=== PATIENT | female | born 1975 | race Caucasian/White ===

== ENCOUNTER → 2017-02-23 | Outpatient (CLI) | payer MEDICAID ==
[~2017-02-23] MED LIST: BACTRIM DS 8001 TAB PO; CETIRIZINE HCL10 MG PO; CLARITIN10 MG OR; CYCLOBENZAPRINE10 MG PO; GABAPENTIN 400400 MG PO; NICOTINE T21 MG/24 H TD; OMEPRAZOLE40 MG PO; PERCOCET 5/3251 EACH PO; PHENTERMINE H37.5 M3 PO; TESSALON PERLE200 MG PO; ZORVOLEX35 MG PO
== END ==
LOC: LAB 12:12
DX: M25.529 Pain in unspecified elbow (principal); E66.3 Overweight